=== PATIENT | male | born 1990 | race Hispanic/Latino ===

== ENCOUNTER 2017-10-31 23:51 | Emergency (ER) | payer SELFPAY ==
[2017-11-01] MEDS ORDERED: KETOROLAC TROMETHAMINE 60 MG/2 ML VIAL ONE (00:30)
== END 2017-11-01 01:08 | disposition home or self-care (01) ==
LOC: EDH 23:51
DX: R07.89 Other chest pain (principal); M54.9 Dorsalgia, unspecified
CPT/HCPCS: 71046; 93005; 96372; 99284; J1885